=== PATIENT | female | born 1955 | race Two or more races ===

== ENCOUNTER 2017-01-21 11:58 | Day surgery (SDC) | payer OTHER ==
[~2017-01-21] VITALS: Ht 167.6 cm; Wt 73.1 kg
[2017-01-21] MEDS ORDERED: NEBI2.5T2 PO (13:04)
[2017-01-21] MEDS ORDERED: ASPI-664 PO (13:04)
[2017-01-21] MEDS ORDERED: ATOR40TA68 PO (13:04)
[2017-01-21] MEDS ORDERED: AMLO2.5T78 PO (13:04)
[2017-01-21 13:10] VITALS: Ht 167.6 cm; Wt 73.1 kg
[2017-01-21 13:26] VITALS: BP 132/68; PULSE 57; RESP 18
[2017-01-21] MEDS ORDERED: LIDOCAINE 2% (SDV) 5 ML INJ ONE (14:33)
[2017-01-21] MEDS ORDERED: PROPOFOL 40 ML ONE (14:33)
--- NOTE | 2017-01-21 15:07 | OPPN ---
Date/Time of Note Date/Time of Note DATE: 01/21/17 TIME: 15:01 Proc Note GI Free Text/Dictation Preoperative Diagnosis: Dyspepsia Postoperative Diagnosis: * Linear gastric ulceration fundus and body of the stomach. Biopsies obtained * Moderate gastritis. Rule out H. pylori infection. Biopsies obtained Plan: * PPI therapy i.e. omeprazole 40 mg daily * Review pathology as soon as available * follow-up EGD in 8 weeks Procedure Performed: EGD with biopsies Surgeon: Olegario Garcia MD Manufacturing Clerk: None Second Slat Basket Maker: None Anesthesia/Sedation: MAC/per anesthesiologist Tourniquet Time: NA Estimated Blood Loss: 0 Transfusion Required: No Specimens: #1 gastric body and antrum #2 gastric ulcer Grafts/Implants: None Tubes/Drains: NA Complications: None Pt. Condition Post Procedure: Stable Disposition: Home After informed consent, with the patient/relatives understanding the procedure, its indications, potential risks and complications, including but not limited to : allergic reaction, bleeding, perforation or infection, and after all pertinent questions were answered to the patients satisfaction, the patient/ relatives signed witnessed informed consent. Following this, premedication was administered slowly IV push under careful cardiovascular and respiratory monitoring with pulse oximetry, automatic blood pressure, and carpet layer. Once the sedative effect was achieved the patient was place in the left lateral decubitus, the panendoscope was introduced and advanced under visual control. Careful examination of the upper gastrointestinal tract, both on insertion as well as withdrawal of the instrument disclosing the following findings: Esophagus: the mucosa of the entire esophagus was carefully examined and showed the following findings: [the mucosa appears within normal limits. There is no evidence of esophagitis, varices, neoplasm, or stricture. No Hiatal Hernia identified.] Stomach: Upon entrance to the stomach air was insufflated, the gastric agosto distended normally. The mucosa of the fundus, body and antrum of the stomach was carefully examined both head-on and on retroflexion, and showed the following findings: There is a linear ulceration in the proximal stomach fundus and body measuring approximately 2 cm in length. Benign endoscopic appearance. Biopsies were obtained. There is diffuse erythema and edema of the mucosa of the body and antrum of the stomach. Biopsies were obtained to rule out H. pylori infection. Otherwise the mucosa appears within normal limits with no abnormalities. There is no evidence of neoplasm.] Pylorus: The pylorus was carefully examined and showed the following findings: [ the pylorus appears patent and within normal limits, with no evidence of gastric outlet obstruction.] Duodenum: The duodenal mucosa was carefully examined in the duodenal bulb as well as the second portion of the duodenum and showed the following findings: [ the mucosa appears unremarkable with no evidence of duodenitis, ulcer or neoplasm.] Procedure date: Jan 21, 2017 OLEGARIO GARCIA MD Jan 21, 2017 15:06
--- NOTE | 2017-01-21 15:10 | OPPN ---
Date/Time of Note Date/Time of Note DATE: 01/21/17 TIME: 15:07 Proc Note GI Free Text/Dictation Procedure Date: 01/21/2017 Preoperative Diagnosis: Colorectal cancer screening Postoperative Diagnosis: * 4 mm rectal polyp. Ablated * Moderate-sized internal hemorrhoids * Otherwise normal colonoscopy to cecum Plan: * Review pathology as soon as available * High-fiber diet * Annual Hemoccult stool testing * Surveillance colonoscopy in 5 years Procedure Performed: Colonoscopy plus ablation Surgeon: Olegario Garcia MD [employer] Teacher Assistant: None Second Bpm Developer: None Anesthesia/Sedation MAC per anesthesiologist Tourniquet Time: NA Estimated Blood Loss: 0 Transfusion Required: No Specimens: #1 rectal polyp Grafts/Implants: None Tubes/Drains: NA Complications: None Pt. Condition Post Procedure: Stable Disposition: Home After informed consent, with the patient/relatives understanding the procedure, its indications and potential risks and complications, including but not limited to: Allergic reaction, bleeding, perforation, infection, and after all pertinent questions were answered to the patient's satisfaction, the patient/ relatives signed the witnessed informed consent. Following this, premedication was administered slowly IV push under careful cardiovascular and respiratory monitoring with pulse [employer], automatic blood pressure, and production truck driver. Once the sedative effect was achieved, the patient was placed in the left lateral decubitus position, digital rectal examination was performed. A colonoscope was then introduced and advanced under visual control throughout all segments of the colon including: [the rectum, sigmoid, descending colon, splenic flexure, transverse colon, hepatic flexure, ascending colon and finally reaching the cecum which was clearly identified by transillumination, finger indentation and the ileocecal valve.] Careful examination of the mucosa of the lower gastrointestinal tract both on insertion as well as withdrawal of the instrument disclosed the following findings: Preparation quality: [Adequate], Rectal Examination: The anorectal area was visualized examined and digital rectal examination performed with the following findings: [No evidence of perirectal disease, no masses.] Colonic mucosa: The mucosa of all segments of the colon was carefully examined and showed the following findings: There is a 4 mm polyp in the rectum. Ablated. Moderate size internal hemorrhoids are present. Otherwise the examined mucosa appears within normal limits. There is no evidence of inflammatory changes, diverticular formation, other neoplasms, vascular malformation, or any other abnormality.] The instrument was then withdrawn, the patient tolerated the procedure well and was transferred out of the Endoscopy Suite awake and in good condition to continue recovery under observation. Procedure date: Jan 21, 2017 OLEGARIO GARCIA MD Jan 21, 2017 15:09
== END 2017-01-21 15:45 | disposition home or self-care (01) ==
LOC: GIL 11:58
PROVIDERS: ATTEND Internal Medicine Gastroenterology
DX: Z12.11 Encounter for screening for malignant neoplasm of colon (principal); K29.50 Unspecified chronic gastritis without bleeding; K25.9 Gastric ulcer, unspecified as acute or chronic, without hemorrhage or perforation; K64.8 Other hemorrhoids; K62.1 Rectal polyp; E11.9 Type 2 diabetes mellitus without complications; I10 Essential (primary) hypertension; E78.5 Hyperlipidemia, unspecified; E66.9 Obesity, unspecified; Z68.26 Body mass index [BMI] 26.0-26.9, adult
CPT/HCPCS: 43239; 45380; 88305; 88312; Z7610

== ENCOUNTER 2017-11-05 13:32 | Day surgery (SDC) | END 2017-11-05 19:43 | disposition home or self-care (01) ==